=== PATIENT | female | born 1950 | race Caucasian/White ===

== ENCOUNTER 2021-11-02 10:51 | Outpatient (CLI) | payer MEDICARE ==
--- NOTE | 2021-11-03 12:13 | Mammography Report ---
BILATERAL DIGITAL SCREENING MAMMOGRAM 3D/2D WITH EXAGGERATED CC: 11/02/2021 CLINICAL: Routine screening. Routine screening. Personal history of left breast cancer. Comparison is made to exams dated: 08/18/2020 mammogram and 03/18/2019 mammogram - outside location. Both breasts are heterogeneously dense, which may obscure small masses (category c / 51-75% glandula r tissue). The left breast has post-operative findings. There is a new 0.8 cm oval high density focal asymmetry in the right breast at 8 o'clock middle depth . No other significant masses, calcifications, or other findings are seen in either breast. IMPRESSION: INCOMPLETE: NEEDS ADDITIONAL IMAGING EVALUATION The new 0.8 cm oval high density focal asymmetry in the right breast resembles a cyst or a lymph node and is indeterminate. Additional views with possible ultrasound are recommended. This exam was interpreted at Station ID: [id number]. NOTE: For mammograms, a report in lay terms will be sent to the patient. Approximately 15% of breast malignancies will not be visualized mammographically. In the management of a palpable breast mass, a negative mammogram must not discourage biopsy of a clinically suspicious lesion. Electronically Signed By: Sridhar Montes M.D. aty/:11/02/2021 20:21:56 ACR BI-RADS Category 0: Incomplete 3340F PARENCHYMAL PATTERN: (D) - The breast(s) demonstrate(s) heterogeneously dense fibroglandular parhay yehuda. BI-RADS CATEGORY: (0) - 0 Mammo and US [id number] Immediate follow-up LATERALITY: (R)
== END 2021-11-02 10:52 | disposition home or self-care (01) ==
LOC: DI.S 10:51
PROVIDERS: ATTEND Nurse Practitioner Family
DX: Z12.31 Encounter for screening mammogram for malignant neoplasm of breast (principal); Z85.3 Personal history of malignant neoplasm of breast; R92.8 Other abnormal and inconclusive findings on diagnostic imaging of breast

== ENCOUNTER 2022-04-24 15:18 | Outpatient (CLI) | payer MEDICARE ==
--- NOTE | 2022-04-24 16:46 | XRAY Report ---
PROCEDURE: Toe(s) RT INDICATIONS: PAIN OF TOE OF RIGHT FOOT TECHNIQUE: 3 views of the third toe(s) acquired. COMPARISON: None FINDINGS: Bones: Age indeterminant fracture involving distal portion of third middle phalangeal shaft is seen. Osteoarthritic changes are noted throughout right foot. No other fracture or dislocation is seen. Mod erate hallux valgus is noted. No suspicious bony lesions. Soft tissues: No suspicious soft tissue densities. IMPRESSION: Age indeterminant fracture involving distal portion of third middle phalangeal shaft. Midfoot and for efoot joint osteoarthritis. Hallux valgus. Reviewed by: Avel Sears MD on 04/24/2022 4:45 PM PDT Approved by: Avel Sears MD on 04/24/2022 4:45 PM PDT Station ID: [id number]
== END 2022-04-24 15:19 | disposition home or self-care (01) ==
LOC: DI.S 15:18
PROVIDERS: ATTEND Nurse Practitioner Family
DX: S92.521A Displaced fracture of middle phalanx of right lesser toe(s), initial encounter for closed fracture (principal); M19.071 Primary osteoarthritis, right ankle and foot; M20.11 Hallux valgus (acquired), right foot

== ENCOUNTER 2022-06-22 12:23 | Outpatient (CLI) | payer MEDICARE, OTHER ==
--- NOTE | 2022-06-23 10:41 | Ultrasound Report ---
LIMITED ULTRASOUND OF RIGHT BREAST: 06/22/2022 CLINICAL: Patient returns for a 6 month follow up of the right breast. Comparison is made to exams dated: 06/22/2022 mammogram, 11/18/2021 ultrasound, 11/18/2021 mammogram, mammogram - [facility], 08/18/2020 mammogram, and 03/18/2019 mammogram - [facility], [place]. Color flow and real-time ultrasound of the right breast 10 o'clock region were performed. Green scale images of the real-time examination were reviewed. There is a 0.6 cm x 0.5 cm x 0.3 cm oval mass in the right breast at 10 o'clock middle depth 12 cm fr om the nipple. This oval mass is hypoechoic. This abnormality is not significantly changed and dawna elates with mammography findings. Color flow imaging demonstrates that there is no vascularity prese nt. IMPRESSION: PROBABLY BENIGN The 0.6 cm oval mass in the right breast resembles a lymph node and is probably benign. A follow-up mammogram and an ultrasound in 6 months is recommended to demonstrate stability. Patient will be due for left breast mammogram at that time. Exam findings were conveyed to the patient. This exam was interpreted at Station ID: [id number]. Electronically Signed By: Antelmo Tavares M.D. slc/:06/22/2022 14:14:53 Ultrasound BI-RADS: 3 Probably benign BI-RADS CATEGORY: (3) - 3 Mammo and US [id number] 6 month follow-up LATERALITY: (B)
--- NOTE | 2022-06-23 10:41 | Mammography Report ---
UNILATERAL RIGHT DIGITAL DIAGNOSTIC MAMMOGRAM 3D/2D: 06/22/2022 CLINICAL: Patient returns for a 6 month follow up of the right breast. Comparison is made to exams dated: 11/18/2021 mammogram, 11/02/2021 mammogram - [facility], 08/18/2020 mammogram, 03/18/2019 mammogram, 03/11/2018 mammogram - outside location, and 11/18/2021 ultrasound - [facility]. The right breast is heterogeneously dense, which may obscure small masses (category c / 51-75% glandu lar tissue). There is a stable focal asymmetry in the right breast at 10 o'clock middle depth. No other significant masses or calcifications are seen in the breast. IMPRESSION: INCOMPLETE: NEEDS ADDITIONAL IMAGING EVALUATION The stable focal asymmetry in the right breast most likely is a lymph node and is indeterminate. A targeted ultrasound is recommended and will immediately follow. This exam was interpreted at Station ID: [id number]. NOTE: For mammograms, a report in lay terms will be sent to the patient. Approximately 15% of breast malignancies will not be visualized mammographically. In the management of a palpable breast mass, a negative mammogram must not discourage biopsy of a clinically suspicious lesion. Electronically Signed By: Antelmo Tavares M.D. slc/:06/22/2022 13:03:02 ACR BI-RADS Category 0: Incomplete 3340F PARENCHYMAL PATTERN: (D) - The breast(s) demonstrate(s) heterogeneously dense fibroglandular parparis blackman. BI-RADS CATEGORY: (0) - 0 Ultrasound [id number] Immediate follow-up LATERALITY: (B)
== END 2022-06-22 12:24 | disposition home or self-care (01) ==
LOC: DI 12:23
PROVIDERS: ATTEND Nurse Practitioner Family
DX: N63.11 Unspecified lump in the right breast, upper outer quadrant (principal)

== ENCOUNTER 2023-02-09 08:01 | Outpatient (CLI) | payer MEDICARE, OTHER ==
--- NOTE | 2023-02-14 12:57 | Mammography Report ---
BILATERAL DIGITAL DIAGNOSTIC MAMMOGRAM 3D/2D: 02/09/2023 CLINICAL: Patient returns for a 6 month follow up of the right breast, due for bilateral exam. Comparison is made to exams dated: 06/22/2022 mammogram, 11/18/2021 mammogram, 11/02/2021 mammogram - [facility], 08/18/2020 mammogram, 03/18/2019 mammogram, and 03/11/2018 mammogram - outsid e location. Both breasts are heterogeneously dense, which may obscure small masses (category c / 51-75% glandular tissue). There is a stable focal asymmetry in the right breast at 10 o'clock middle depth. No other significant masses, calcifications, or other findings are seen in either breast. IMPRESSION: INCOMPLETE: NEEDS ADDITIONAL IMAGING EVALUATION The stable focal asymmetry in the right breast is indeterminate. An ultrasound is recommended. This exam was interpreted at Station ID: [id number]. NOTE: For mammograms, a report in lay terms will be sent to the patient. Approximately 15% of breast malignancies will not be visualized mammographically. In the management of a palpable breast mass, a negative mammogram must not discourage biopsy of a clinically suspicious lesion. Electronically Signed By: Jayro Victoria M.D. lc/:02/09/2023 09:31:44 ACR BI-RADS Category 0: Incomplete 3340F PARENCHYMAL PATTERN: (D) - The breast(s) demonstrate(s) heterogeneously dense fibroglandular parenchy ma. BI-RADS CATEGORY: (0) - 0 Ultrasound [id number] Immediate follow-up LATERALITY: (B)
--- NOTE | 2023-02-14 12:57 | Ultrasound Report ---
LIMITED ULTRASOUND OF RIGHT BREAST: 02/09/2023 CLINICAL: Patient returns today to evaluate a focal asymmetry in the right breast. Comparison is made to exams dated: 02/09/2023 mammogram, 06/22/2022 ultrasound, 06/22/2022 mammogram, 11/18/2021 ultrasound, 11/02/2021 mammogram, and 11/18/2021 mammogram - [facility]. Color flow and real-time ultrasound of the right breast 10 o'clock region were performed. Green scale images of the real-time examination were reviewed. There is a stable 0.9 cm x 0.9 cm x 0.4 cm oval mass with a circumscribed margin in the right breast at 10 o'clock middle depth 12 cm from the nipple. This correlates with mammography findings. In 11/18/21, this was 0.9 x 0.4 x 0.9cm. IMPRESSION: PROBABLY BENIGN The stable 0.9 cm x 0.9 cm x 0.4 cm oval mass in the right breast is probably benign. A follow-up mammogram and an ultrasound in 6 months is recommended to demonstrate stability. This exam was interpreted at Station ID: [id number]. Electronically Signed By: Jayro Victoria M.D. lc/:02/09/2023 09:36:04 Ultrasound BI-RADS: 3 Probably benign BI-RADS CATEGORY: (3) - 3 Mammo and US [id number] 6 month follow-up LATERALITY: (B)
== END 2023-02-09 08:02 | disposition home or self-care (01) ==
LOC: DI 08:01
PROVIDERS: ATTEND Nurse Practitioner Family
DX: N63.11 Unspecified lump in the right breast, upper outer quadrant (principal)

== ENCOUNTER 2023-05-20 10:52 | Emergency (ER) | payer MEDICARE, OTHER ==
--- NOTE | 2023-05-20 12:37 | ED Physician Documentation ---
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 Has had open wound for few months. Seen in wound care few days ago and had opening/aspiration of a fluid/tophus collection. Pt states much increased red/pain and has some draiange from it. Had culture and fluid exam from it.) Timing - duration: Days (3) Timing - details: Gradual onset, Still present Location: RLE (middle toe) Quality / character: Painful, Discolored, Swelling, Draining Associated symptoms: No: Fever, Myalgias Contributing factors: No: Recent illness Recently seen: Clinic (wound clinic 3 days ago) Review of Systems Constitutional: denies: Fever, Chills, Myalgias PD PAST MEDICAL HISTORY - Past Medical History Past Medical History: Yes Cardiovascular: Hypertension, Atrial fibrillation Neuro: Alzhiemer's Musculoskeletal: Gout - Past Surgical History /[employer]: Other - Present Medications Home Medications: Ambulatory Orders Medication Instructions Recorded Confirmed Apixaban [Eliquis] 5 mg PO BID 09/08/22 05/20/23 Cholecalciferol [Vitamin D3] 1,000 unit PO DAILY 09/08/22 05/20/23 Famotidine 40 mg PO DAILY 09/08/22 05/20/23 Olmesartan Medoxomil [Benicar] 40 mg PO DAILY 09/08/22 05/20/23 allopurinoL [Zyloprim] 50 mg PO DAILY 09/08/22 05/20/23 atenoloL [Tenormin] 25 mg PO BID 09/08/22 05/20/23 Donepezil HCl [Aricept] 10 mg PO DAILY 05/09/23 05/20/23 Memantine [Namenda] 10 mg PO BID 05/09/23 05/20/23 Colchicine 0.6 mg PO TID PRN #20 tablet 05/20/23 Doxycycline Hyclate 100 mg PO BID 7 Days #14 cap 05/20/23 Mupirocin 2% Oint [Bactroban 2% 1 applic TOP TID #15 gm 05/20/23 Oint] dexAMETHasone [Decadron] 4 mg PO DAILY #5 tablet 05/20/23 - Allergies Allergies/Adverse Reactions: Allergies Allergy/AdvReac Type Severity Reaction Status Date / Time No Known Drug Allergies Allergy Verified 05/20/23 11:16 - Social History Does the pt smoke?: No Smoking Status: Never smoker Does the pt drink ETOH?: No Does the pt have substance abuse?: No - Immunizations Immunizations are current?: Yes - POLST Patient has POLST: No PD ED PE NORMAL - Vitals Vital signs reviewed: Yes - General General: Alert and oriented X 3, No acute distress, Well developed/nourished - Extremities Extremities: Other (right middle toe with redness and swelling but good blanching and cap refill at tip. Tender middle and prox phalanges area with open sore dorsal and medial sides. Some white material. Culture obtained (I had not yet seen the cx from 05/17/23). Redness and tender dorsum foot but not proximal to that. ) - Neuro Neuro: Alert and oriented X 3, No motor deficit, No sensory deficit Results - Vitals Vitals: Vital Signs - 24 hr 05/20/23 05/20/23 11:11 13:39 Temperature 36.1 C L 36.6 C Heart Rate 81 76 Respiratory 20 18 Rate Blood Pressure 140/78 H 150/77 H O2 Saturation 99 100 Oxygen O2 Source Room air - Labs Labs: Microbiology 05/20/23 12:59 Wound Culture - Preliminary Toe - Right Third PD Medical Decision Making - ED course Complexity details: considered differential (It appears like most of the red/tender/pain is in a gouty patern top of foot and around the toe, but there is some draiange and the culture from procedure 3 days ago is showing MRSA so will treat for infection of course as well. ), d/w patient Departure - Departure Disposition: 01 Home, Self Care Clinical Impression: Acute gout of foot, Wound infection following procedure Condition: Stable Record reviewed to determine appropriate education?: Yes Instructions: ED Wound Care Prescriptions: Mupirocin 2% Oint [Bactroban 2% Oint] 1 applic TOP TID #15 gm Colchicine 0.6 mg PO TID PRN #20 tablet PRN Reason: Pain 1-4 dexAMETHasone [Decadron] 4 mg PO DAILY #5 tablet Doxycycline Hyclate 100 mg PO BID 7 Days #14 cap Comments: The area of redness and tenderness on the top of the foot and by the toe does look more patterned to be gout exacerbation. The redness swelling and slight bruising color on the middle toe are reasonable post procedure. However concern would be for impending and developing infection. With the drainage from the site, it is hard to tell whether it is just more drainage of the tophus material versus early purulence. We did do a culture of it at this point we will see if there is any signs of growth or bacterial infection, Though there was already growth from the culture on the fourth when they did the procedure that is showing MRSA sensitive to doxycycline. Meanwhile I would treat it as such just in case with a combination of cleaning soap and water or very dilute peroxide and water to the area combined with mupirocin topical antibiotic ointment and oral doxycycline. The culture should result in 2 to 3 days and we can reassess the treatment based on that. Meanwhile treated as a gout flareup with colchicine and also Decadron steroid for anti-inflammatories. To that add acetaminophen 500 to 650 mg 4 times daily regularly with food. Recheck if not improving well over the next couple of days. Follow-up this coming week for recheck. I sent new prescriptions to preferred pharmacy. Forms: PCP List Discharge Date/Time: 05/20/23 14:08
[2023-05-20] MEDS: DOXYCYCLINE 100 MG TABLET PO STA (13:17)
[2023-05-20] MEDS: ACETAMINOPHEN 500 MG TABLET PO STA (13:17)
[2023-05-20] MEDS: dexAMETHasone 4 MG TABLET PO STA (13:17)
[2023-05-20] MEDS: MUPIROCIN 2% OINT 1 GM TOP STA (13:18)
[2023-05-20 13:47] VITALS: BP 150/77; O2SAT 100
--- NOTE | 2023-05-22 15:01 | ED Physician Documentation ---
ED Addendum - Addendum Addendum: 05/22/23 15:00 Culture reviewed showing Providencia Rettgeri. Patient was sent home on doxycycline and organism Appears to be resistant to tetracyclines. Therefore we will send a new prescription for ciprofloxacin which organism is sensitive to [facility] in [place]. Have asked charge nurse Guido to call patient and relay information.
== END 2023-05-20 14:08 | disposition home or self-care (01) ==
LOC: ED 10:52
DX: M10.9 Gout, unspecified (principal); T81.49XA Infection following a procedure, other surgical site, initial encounter; L08.9 Local infection of the skin and subcutaneous tissue, unspecified; B96.89 Other specified bacterial agents as the cause of diseases classified elsewhere; I10 Essential (primary) hypertension; I48.91 Unspecified atrial fibrillation; G30.9 Alzheimer's disease, unspecified; F02.80 Dementia in other diseases classified elsewhere, unspecified severity, without behavioral disturbance, psychotic disturbance, mood disturbance, and anxiety; Z79.01 Long term (current) use of anticoagulants; Z79.899 Other long term (current) drug therapy
CPT/HCPCS: 87070; 87205; 99283; 99284; A9270; J8540; 87077; 87181

== ENCOUNTER 2023-05-31 15:47 | Outpatient (CLI) | payer MEDICARE, OTHER | END 2023-05-31 15:48 | disposition home or self-care (01) | LOC: LAB 15:47 | PROVIDERS: ATTEND Family Medicine | DX: M1A.9XX1 Chronic gout, unspecified, with tophus (tophi) (principal); L97.516 Non-pressure chronic ulcer of other part of right foot with bone involvement without evidence of necrosis; L08.9 Local infection of the skin and subcutaneous tissue, unspecified ==